=== PATIENT | male | born 1955 | race Caucasian/White ===

== ENCOUNTER 2024-04-17 15:10 | Emergency (ER) | payer BC, SELFPAY ==
[2024-04-17 15:18] VITALS: BP 179/126
[2024-04-17] MEDS: TORADOL 30 MG IM (15:59)
--- NOTE | 2024-04-17 17:43 | ED.GENMED ---
History of Present Illness
General
Chief Complaint: Head Injury
Time Seen by Provider: 04/17/24 15:49
History of Present Illness
History of Present Illness:
68-year-old male presents the emergency department for evaluation of facial and right forearm injuries after a fall yesterday, states he slipped on his stairwell and fell down the stairs last night. Denies any blurry or double vision. No headache,
nausea, or vomiting at this point. Denies any neck pain, chest pain, or extremity paresthesias
Review of Systems
Review of Systems
Allergies reviewed?: Yes
All Other Systems: ROS reviewed and negative except as documented in HPI and ROS
Phy Exam
Physical Exam
Physical Exam:
GEN: Well appearing, NAD, WDWN
Eyes: PERRLA, EOMs intact, no scleral icterus
HENT: Diffuse ecchymosis to the right periorbital face extending toward the upper mandible, mandible range of motion is normal however pain is elicited during range of motion, no obvious dental injuries. Extraocular motions intact in all [place]
with no reported diplopia and no pain
Lungs: CTAB, no wheezes, rales, rhonchi, normal chest wall excursion
Cardiac: RRR, no M/R/G, no peripheral edema. Radial pulses 2+ bilat
Neuro: AO x 3, no focal deficits to BUE/BLE, normal sensation throughout
MSK: Swelling and ecchymosis to the midshaft right forearm with no obvious deformity
Skin: No rashes, petechiae. Normal color, no pallor or jaundice.
Psych: Calm, cooperative, proper hygiene
Course
Orders/Labs/Results
Orders:
Orders
04/17/24 15:10
CR Facial Bones Comp Min 3 Vw* Urgent
Comment:
Reason For Exam: injury
04/17/24 15:53
CT Facial Bones W/o Iv Contras Urgent
Comment:
Reason For Exam: facial trauma
Ketorolac [Toradol] 30 mg IM NOW STA
CR Forearm - Right 2 View Urgent
Comment:
Reason For Exam: fall
Vital Signs
Initial and Last Documented VS:
Initial Vital Signs
Temp Pulse Resp BP Pulse Ox
98.1 F 115 16 179/126 98
04/17/24 15:18 04/17/24 15:18 04/17/24 15:18 04/17/24 15:18 04/17/24 15:18
Last Documented Vital Signs
Temp Pulse Resp BP Pulse Ox
98.1 F 94 18 144/106 100
04/17/24 15:18 04/17/24 17:55 04/17/24 17:55 04/17/24 17:55 04/17/24 17:55
MDM/Problems Addressed
MDM/Problems Addressed:
Imaging reveals multiple facial/orbital/mandibular fractures as well as a right ulnar shaft fracture. I discussed the case with ENT as well as oral maxillofacial surgery, ENT in agreement with plan for discharge on Augmentin with strict sinus
precautions, OMS recommends soft diet and tertiary care referral for the coronoid process fracture as this may require surgical fixation. He will also need Ortho f/u for ulnar shaft fx, which was placed in a sugar-tong fiberglass splint with good
neurovascular status post splinting
*Critical Care Note
Total Time (30-74mins, 75-104mins- exclusive of procedures): Not Applicable
ED Attending Note
-
Portions of this chart may have been created with voice recognition software.� Occasional wrong word or��sound alike� substitutions may have occurred due to the inherent limitations of voice recognition software.
Discharge Plan
Departure
Patient Disposition: Home (Routine Discharge)
Date of Disposition: 04/17/24
Time of Disposition: 17:43
Patient with high blood pressure during this ER visit?: No
Discharge Problem:
Multiple closed facial bone fractures, Closed fracture of right coronoid process of mandible
Instructions: Soft Diet, Facial Fracture (DC)
Prescriptions:
New
amoxicillin-pot clavulanate 875-125 mg tablet
1 tab PO BID Qty: 14 0RF
Referrals:
Kay Raza PA [Family Provider] -
Jeovanny Thomas MD [Active] - Call in 1-3 days for appt (Orthopedics)
Gm Baron MD [Active] - Follow up in 10 days (Ear/Nose/Throat)
Activity Restrictions/Additional Instructions:
Soft diet for 2 weeks
No blowing nose, flying or swimming
If you have to sneeze, keep your mouth open
Call [facility] at [place] for an appointment
[phone]
[place] [address]
You will also need to follow up with Ear/nose/throat and Orthopedics for the right forearm fracture
Interventions
Interventions:
*Risk Screen - Suicide Last Done: 04/17/24 16:00
*General Assessment Last Done: 04/17/24 16:00
*Neglect/Abuse Screening Last Done: 04/17/24 16:00
ED- Fall Risk Assessment Last Done: 04/17/24 16:00
*ED COVID-19 Vaccine History Last Done: 04/17/24 16:00
*Nursing Disposition Last Done: 04/17/24 17:56
ED- Neurological Assessment Last Done: 04/17/24 16:15
ED-Skin Assessment Last Done: 04/17/24 16:15
Discharge Date and Time
Discharge Date/Time: 04/17/24 17:56
Print Language: SWEDISH
[2024-04-17 17:55] VITALS: BP 144/106
== END 2024-04-17 17:56 | disposition home or self-care (01) ==
LOC: EMR 15:10
PROVIDERS: EMERGENCY PHYSICIAN Emergency Medicine; FAMILY PHYSICIAN Physician Assistant Medical
DX: S02.631A Fracture of coronoid process of right mandible, initial encounter for closed fracture (principal); S02.85XA Fracture of orbit, unspecified, initial encounter for closed fracture; S02.40EA Zygomatic fracture, right side, initial encounter for closed fracture; S02.40CA Maxillary fracture, right side, initial encounter for closed fracture; S02.2XXA Fracture of nasal bones, initial encounter for closed fracture; S52.251A Displaced comminuted fracture of shaft of ulna, right arm, initial encounter for closed fracture; W10.9XXA Fall (on) (from) unspecified stairs and steps, initial encounter
CPT/HCPCS: 99285; 96372; 29125; 70150; 70486; 73090

== ENCOUNTER 2024-04-26 06:05 | Day surgery (SDC) | payer BC, SELFPAY ==
[2024-04-23 09:39] LABS: % Basophils 0.8 % (0-2); % Eosinophils 1.8 % (0-6); % Immature Granulocytes 0.2 % (0-0.5); % Monocytes 8.6 % (1.7-9.3); % Neutrophils 65.6 % (42.2-75.2); Absolute Basophils 0.1 10^3/uL (0-0.2); Absolute Eosinophils 0.1 10^3/uL (0-0.7); Absolute Lymphocytes 1.5 10^3/uL (1.2-3.4); Absolute Monocytes 0.6 10^3/uL (0.1-0.6); Absolute Neutrophils 4.3 10^3/uL (1.4-6.5); Hematocrit 39.9 % (39.0-52.0); Hemoglobin 13.8 g/dL (13.0-18.0); Mean Corp Hgb Conc. 34.6 g/dL (33.0-37.0); Mean Corpuscular Hgb 32.2 pg (27.0-31.0); Mean Corpuscular Volume 93.2 fL (80.0-94.0); Mean Platelet Volume 9.7 fL (7.4-10.4); Nucleated Red Blood Cells % 0 % (-); Platelet Count 270 10^3/uL (130-400); Red Blood Cell Count 4.28 10^6/uL (4.70-6.10); Red Cell Dist. Width 14.1 % (11.5-14.5); White Blood Cell Count 6.5 10^3/uL (4.8-10.8)
[2024-04-23 10:06] LABS: Blood Urea Nitrogen 11 mg/dl (9-20); Calcium 9.6 mg/dl (8.4-10.2); Carbon Dioxide 27 mmol/L (22-30); Chloride 101 mmol/L (98-107); Glucose 107 mg/dl (70-99); Potassium 4.3 mmol/L (3.5-5.1); Sodium 139 mmol/L (135-145); eGFR > 60.00
[2024-04-26] VITALS (9 sets, daily range): BP systolic 132–170; BP diastolic 87–100; BMI 21.0
[2024-04-26] MEDS: CELEBREX 200 MG PO (06:38)
[2024-04-26] MEDS: TYLENOL 1000 MG PO (06:38)
[2024-04-26] MEDS: NORMOSOL-R/PLASMALYTE-A 1000 IV (06:46)
== END 2024-04-26 10:30 | disposition home or self-care (01) ==
LOC: SDS 06:05
PROVIDERS: ATTENDING PHYSICIAN Orthopaedic Surgery; FAMILY PHYSICIAN Physician Assistant
DX: S52.251A Displaced comminuted fracture of shaft of ulna, right arm, initial encounter for closed fracture (principal); W10.9XXA Fall (on) (from) unspecified stairs and steps, initial encounter
CPT/HCPCS: 25545; 36415; 80048; 85025; 93005; C1713